=== PATIENT | female | born 1970 | race Caucasian/White ===

== ENCOUNTER 2018-01-12 13:51 | Outpatient (CLI) | payer BC | END 2018-01-12 13:52 | disposition home or self-care (01) | LOC: BICMAMMO 13:51 | PROVIDERS: ATTEND Obstetrics & Gynecology | DX: Z12.31 Encounter for screening mammogram for malignant neoplasm of breast (principal) | CPT/HCPCS: 77063; 77067 ==

== ENCOUNTER 2018-03-17 15:18 | Outpatient (CLI) | payer BC ==
[~2018-03-17 15:18] MED LIST: Gadobenate Dimeglumine 529 MG/1 ML (20ML VIAL) ONE
--- NOTE | 2018-03-17 19:09 | MRI ---
BRAIN MRI WITH AND WITHOUT CONTRAST: 03/17/18 INDICATION: Vascular headache. FINDINGS: There is normal sized ventricular system. Midline structures maintain appropriate alignment. There is no hemorrhagic susceptibility or acute territorial infarction. No evidence of pathologic intra-axial enhancement. Skull base flow voids are maintained. Sellar contents are unremarkable. There is mild c erebellar tonsillar ectopia. IMPRESSION: 1. No evidence of an acute intracranial abnormality. 2. Incidental note of a partially imaged rounded hypointensity structure of the partially visual ized right parotid gland. This cannot be further characterized on the basis of this exam. Recommend f [facility] CT neck soft tissue exam for further characterization. POS: [facility]
== END 2018-03-17 15:19 | disposition home or self-care (01) ==
LOC: BICMRI 15:18
PROVIDERS: ATTEND Psychiatry & Neurology Neurology
DX: G44.1 Vascular headache, not elsewhere classified (principal)
CPT/HCPCS: 70553; A9579

== ENCOUNTER 2023-10-26 17:11 | Outpatient (CLI) | payer BC | END 2023-10-26 17:12 | disposition home or self-care (01) | LOC: SCSRAD 17:11 | PROVIDERS: ATTEND Nurse Practitioner Family | DX: R10.30 Lower abdominal pain, unspecified (principal) | CPT/HCPCS: 74018 ==

== ENCOUNTER 2023-10-27 15:40 | Outpatient (CLI) | payer BC | END 2023-10-27 15:41 | disposition home or self-care (01) | LOC: CT 15:40 | PROVIDERS: ATTEND Family Medicine | DX: R10.30 Lower abdominal pain, unspecified (principal); K57.32 Diverticulitis of large intestine without perforation or abscess without bleeding | CPT/HCPCS: 74177 ==